=== PATIENT | male | born 1950 | race Caucasian/White ===

== ENCOUNTER → 2022-04-06 | Day surgery (SDC) | payer MEDICARE, OTHER ==
[~2022-04-06] MED LIST: Flumazenil 0.1 MG/ML 10 ML MDV ONE; Glycopyrrolate 0.2 MG/ML 2 ML SDV ONE; Ketamine 200 MG/20 ML MDV ONE; Midazolam 1 MG/ML 2 ML SDV ONE; Phenylephrine 1% 10 MG/ML SDV ONE; Propofol 200 MG/20 ML SDV ONE; fentaNYL 50 MCG/ML SDV ONE
[2022-04-06 08:21] LABS: CHLORIDE,CL 99 mEq/L (98-106); SODIUM,NA 137 mEq/L (136-145)
[2022-04-06 08:27] LABS: ESTIMATED GFR 72 mL/min (>=60)
[2022-04-06] MEDS: Lactated Ringers 1,000 ML IV SCH (08:36)
== END ==
LOC: CC.SDS 08:04
PROVIDERS: ATTEND Family Medicine
DX: K62.1 Rectal polyp (principal); K62.0 Anal polyp; K57.30 Diverticulosis of large intestine without perforation or abscess without bleeding; K63.5 Polyp of colon; I10 Essential (primary) hypertension; M19.90 Unspecified osteoarthritis, unspecified site; N40.0 Benign prostatic hyperplasia without lower urinary tract symptoms; I73.9 Peripheral vascular disease, unspecified; F32.A Depression, unspecified; Z88.1 Allergy status to other antibiotic agents; Z87.891 Personal history of nicotine dependence; Z79.82 Long term (current) use of aspirin; Z79.899 Other long term (current) drug therapy; Z79.810 Long term (current) use of selective estrogen receptor modulators (SERMs); Z98.890 Other specified postprocedural states
CPT/HCPCS: 00811; 36415; 80048; J2250; J2370; J2704; J3010; J3490; J7120

== ENCOUNTER 2024-04-14 12:34 | Emergency (ER) | payer MEDICARE, OTHER ==
[2024-04-14] MEDS: Sodium Chloride 0.9% 500 ML IV SCH ×2 (12:55→15:19)
[2024-04-14 12:58] LABS: BASOPHILS ABSOLUTE AUTO 0.05 10^3/uL (0.00-0.50); BASOPHILS PERCENT AUTO 0.2 % (0-1); EOSINOPHILS PERCENT AUTO 0.5 % (0-6); HEMATOCRIT 32.6 % (42.0-52.0); HEMOGLOBIN 10.7 g/dL (14.0-18.0); IMMATURE GRAN ABSOLUTE AUTO 0.21 10^3/uL (0.00-0.49); LYMPHOCYTES ABSOLUTE AUTO 3.09 10^3/uL (0.60-5.00); LYMPHOCYTES PERCENT AUTO 14.1 % (24-44); MEAN CORPUSCULAR HEMOGLOBIN 30.2 pg (27.0-32.0); MEAN CORPUSCULAR HGB CONC 32.8 g/dL (32.0-36.0); MEAN CORPUSCULAR VOLUME 92.1 fL (83.0-97.0); MONOCYTES ABSOLUTE AUTO 1.09 10^3/uL (0.00-1.50); NEUTROPHILS ABSOLUTE AUTO 17.43 x10^3/uL (1.80-8.00); NEUTROPHILS PERCENT AUTO 79.2 % (41-71); PLATELET COUNT,PLT 104 10^3/uL (150-400); RED BLOOD CELL COUNT 3.54 x10^6/uL (4.50-6.00)
[2024-04-14] MEDS: Pantoprazole 40 MG Vial IVPUSH ONE (13:07)
[2024-04-14] MEDS: Pantoprazole 40 MG in Sodium Chloride 0.9% 100 ML IV SCH (13:13)
[2024-04-14 13:28] LABS: ALANINE AMINOTRANSFERASE,ALT 12 U/L (12-78); ALBUMIN 2.9 g/dL (3.4-5.0); ALKALINE PHOSPHATASE 63 U/L (46-116); ASPARTATE AMNIOTRANSFERASE,AST 15 U/L (15-37); BILIRUBIN TOTAL 0.7 mg/dL (0.0-1.0); BLOOD UREA NITROGEN,BUN 55 mg/dL (7-18); CALCIUM 9.1 mg/dL (8.4-10.1); CARBON DIOXIDE,CO2 22 mmol/L (21-32); CHLORIDE,CL 104 mEq/L (98-106); CREATININE 1.7 mg/dL (0.7-1.3); ESTIMATED GFR 42 mL/min (>=60); GLUCOSE RANDOM 169 mg/dL (75-99); MAGNESIUM 1.9 mg/dL (1.8-2.4); POTASSIUM,K 5.6 mEq/L (3.5-5.0); PROTEIN TOTAL,TP 5.7 g/dL (6.4-8.2); SODIUM,NA 140 mEq/L (136-145)
[2024-04-14] MEDS: Iopamidol 755 Mg/ML 100 ML Bottle IVPUSH ONE (13:32)
[2024-04-14 14:49] LABS: APPEARANCE,URINE CLEAR (CLEAR); BILIRUBIN,URINE NEGATIVE (NEGATIVE); COLOR,URINE YELLOW (YELLOW); GLUCOSE,URINE NEGATIVE (NEGATIVE); KETONES,URINE NEGATIVE (NEGATIVE); LEUKOCYTE ESTERASE,URINE TRACE (NEGATIVE); NITRITE,URINE NEGATIVE (NEGATIVE); OCCULT BLOOD,URINE TRACE-INTACT (NEGATIVE); PH,URINE 5.5 (4.5-8.0); PROTEIN,URINE 100 mg/dL (NEGATIVE); UROBILINOGEN,URINE 0.2 EU/dL (0.2-1.0)
[2024-04-14] MEDS: Sodium Chloride 0.9% 1,000 ML IV SCH (15:01)
== END 2024-04-14 15:42 ==
LOC: CC.ED 12:34
DX: K92.2 Gastrointestinal hemorrhage, unspecified (principal); E86.1 Hypovolemia; Z79.82 Long term (current) use of aspirin; Z79.899 Other long term (current) drug therapy; Z88.8 Allergy status to other drugs, medicaments and biological substances; Z88.1 Allergy status to other antibiotic agents
CPT/HCPCS: 36415; 36430; 70450; 71045; 74176; 80053; 81001; 83605; 83735; 84484; 85025; 86850; 86900; 86901; 86920; 86922; 87040; 87086; 93005; 93010; 96365; 96366; 99284; 99285-25; J2470; J3490; J7030; J7040; P9016